=== PATIENT | male | born 1940 | race Caucasian/White ===

== ENCOUNTER 2017-12-14 10:08 | Observation (INO) | payer OTHER, BC ==
[2017-12-14 10:39] VITALS: BMI 24.5
--- NOTE | 2017-12-14 11:05 | PDOC ---
History of Present Illness - General Chief Complaint: Lethargy Stated Complaint: FEELING OFF Time Seen by Provider: 12/14/17 10:10 History Source: Patient Exam Limitations: No Limitations - History of Present Illness Initial Comments: 12/14/17 10:50 77 year old with past medical history of episode of dehydration 40 years ago and recent H.pylori diagnosis who presents with 6 months of weakness and some episodes of confusion now with 2 days of inability to sleep through the night 2/ 2 polyuria as patient has been drinking excessively as he is afraid that he might be dehydrated. He admits to exertional shortness of breath. The patient denies chest pain, headaches, changes in vision, abdominal pain, nausea, vomiting, diarrhea. The patient admits to constipation 4 days ago that has resolved for two days. The patient notes a history of losing vision while in stores but when he comes outside he regains vision. The daughter notes that Dr. Xiong had thought this to be due to anxiety. The family has been followed by Dr. Xiong and has been worked up by him. The patient was thought to have possible Parkinson symptoms 1-2 months ago and was evaluated by two neurologists with unremarkable head CT in August,. He was started on a trial of parkinson medications without relief of symptoms of weakness and lightheadedness. Past History - Past Medical History Allergies/Adverse Reactions: Allergies Allergy/AdvReac Type Severity Reaction Status Date / Time Penicillins Allergy Unknown Verified 12/14/17 10:10 Home Medications: Ambulatory Orders Amitriptyline HCl [Elavil -] 10 mg PO HS 12/14/17 Clarithromycin [Biaxin -] 500 mg PO BID 12/14/17 Metronidazole 500 mg PO TID 12/14/17 Omeprazole 20 mg PO BID 12/14/17 COPD: No GI Disorders: Yes Psychiatric Problems: Yes - Suicide/Smoking/Psychosocial Hx Smoking History: Never smoked Hx Alcohol Use: Yes (RARE) Drug/Substance Use Hx: No *Physical Exam - Vital Signs Last Vital Signs Temp Pulse Resp BP Pulse Ox 97.6 F 78 16 143/80 98 12/14/17 10:10 12/14/17 10:10 12/14/17 10:10 12/14/17 10:10 12/14/17 10:10 ED Treatment Course - LABORATORY CBC & Chemistry Diagram: 12/14/17 11:00 12/14/17 11:00 - RADIOLOGY Radiology Studies Ordered: Category Date Time Status CXRPORT [CHEST X-RAY PORTABLE*] [RAD] Stat Radiology 12/14/17 10:23 Ordered Medical Decision Making - Medical Decision Making 12/14/17 11:06 77 year old with past medical history of episode of dehydration 40 years ago and recent H.pylori diagnosis who presents with 6 months of weakness and some episodes of confusion now with 2 days of inability to sleep through the night 2/ 2 polyuria as patient has been drinking excessively as he is afraid that he might be dehydrated. The patient denies chest pain, shortness of breath, headaches, changes in vision, abdominal pain, nausea, vomiting, diarrhea. The patient admits to constipation 4 days ago that has resolved for two days. DDX including but not limited to: electrolye abnormality vs ACS vs PNA vs UTI vs anxiety W/U: - TX: - Scores: ED Course: Patient anxious appearing and remarks that he is scared. When asked what he was scared about he begins to get tearful. The patient's daughter steps in and notes that the patient is normally very active and has been feeling more weak and lightheaded which is why he scared. The patient does not speak. 12/14/17 11:28 CXR: without acute findings. 12/14/17 12:03 Labwork:unremarkable *DC/Admit/Observation/Transfer Diagnosis at time of Disposition: Atypical angina, Exertional dyspnea - Discharge Dispostion Disposition: HOME Condition at time of disposition: Stable Decision to Admit order: Yes - Referrals Referrals: Bowen Xiong MD [Primary Care Provider] - - Patient Instructions - Post Discharge Activity
[2017-12-14 11:14] LABS: BASO % 0.7 % (0-2.0); EOS % 1.1 % (0-4.5); HEMATOCRIT 49.6 % (35.4-49); HEMOGLOBIN 16.7 GM/dl (11.7-16.9); LYMPH % 15.4 % (8-40); MCHC 33.7 g/dl (32.0-35.9); MEAN CELL VOLUME 86.1 fl (80-96); MONO % 7.8 % (3.8-10.2); PLATELET COUNT 152 K/MM3 (134-434); RBC 5.76 M/mm3 (4.00-5.60); RDW 12.5 % (11.9-15.9); WHITE BLOOD COUNT 5.3 K/mm3 (4.0-10.8)
[2017-12-14 11:26] LABS: ALBUMIN 4.2 g/dl (3.5-5.0); ALK PHOS 61 U/L (32-92); ANION GAP 6 MMOL/L (8-16); BILIRUBIN,TOTAL 1.4 mg/dl (0.2-1.0); BLOOD UREA NITROGEN 17 mg/dl (7-18); CALCIUM 9.4 mg/dl (8.4-10.2); CHLORIDE 103 mmol/L (98-107); CO2 27 mmol/L (22-28); GLUCOSE,RANDOM 109 mg/dl (74-106); MAGNESIUM 2.1 mg/dL (1.8-2.4); SGOT/AST 29 U/L (10-42); SGPT/ALT 33 U/L (10-40); SODIUM 136 mmol/L (136-145); TOT PROT 6.6 g/dl (6.4-8.3)
[2017-12-14 11:35] LABS: URINE APPEARANCE Clear; URINE BILIRUBIN Negative (NEGATIVE); URINE COLOR Yellow; URINE GLUCOSE (UA) Negative (NEGATIVE); URINE KETONE Negative (NEGATIVE); URINE LEUK ESTERASE Negative (NEGATIVE); URINE NITRITE Negative (NEGATIVE); URINE PROTEIN Negative (NEGATIVE); URINE UROBILINOGEN 0.2 (0.2-1.0)
--- NOTE | 2017-12-14 12:06 | PDOC ---
Attending Attestation - Resident Resident Name: Guerda Pandya - ED Attending Attestation I have performed the following: I have examined & evaluated the patient, The case was reviewed & discussed with the resident, I agree w/resident's findings & plan, Exceptions are as noted - HPI HPI: 12/14/17 12:02 77 yo M ho htn, hld , here with c/o feeling " not well" pt describes decreased sleep for the last few weeks especially the last few days. also describes getting short of breath walking short distances, used to walk up and down a hill , now cant do it anymore. describes feeling fatigued, and lightheaded and sob with minimal exertion. denies cp. no dark stools. does have urinary frequency, denies dysuria. no f/c no other complaints. no cp. here wtih daughter who provides additional history states he has seen an nuerologist. dr. fontenot for this, and pcp dr. villalba, has recently started xanax to help him sleep. but no relief. - Physicial Exam PE: 12/14/17 12:04 awake alert lungs clear heart rrr no mrg abd soft nt nd. no pulsatile mass. ext wwp. nuero alert oriented strenth 5/5 all four ext. skin warm and dry. - Medical Decision Making 12/14/17 12:05 differential: anemia electrolyte abnormality, infection such as pna or uti. cardiac dysfunction atypical mi. plan labs ekg cxr . will consider admission for weakness, fagiute and exertional dyspena. cardiac workup and echo. labs unremarkable in ed. ekg with occasional pac, otherwise no ischemic changes. Heart Score/ECG Review #1 General ECG Interpretation: Sinus Rhythm, Normal Rate (65), Normal Intervals, No acute ischemic changes
--- NOTE | 2017-12-14 12:46 | HP ---
CHIEF COMPLAINT: dyspnea upon exertion PCP: Dr Xiong GI: Dr Feliz HISTORY OF PRESENT ILLNESS: patient is a 77 y/o male, was recently diagnosed with early stages of parkinson's disease as per his neurologist, Dr Broussard. Daughter at bedside, reports he was started on anti-parkinson's medication but discontinued the medication secondary to side effects. He was evaluated by GI, Dr Feliz, last month and was noted to be + for hyplori and was started on PPI, biaxin and flagyl with relief of nausea. Patient reports 2 days of dyspnea upon exertion with dizziness. Patient denies any syncopal episode. ER course was notable for: (1)ekg nsr with PAC's (2)troponin x 1 wnl Recent Travel: none PAST MEDICAL HISTORY: see hpi PAST SURGICAL HISTORY:none as per patient Social History: resides at home with Smoking:none Alcohol:none Drugs: none Family History: noncontributory Allergies Penicillins Allergy (Unknown, Verified 12/14/17 10:10) HOME MEDICATIONS: Home Medications Medication Instructions Recorded Amitriptyline HCl [Elavil -] 10 mg PO HS 12/14/17 Clarithromycin [Biaxin -] 500 mg PO BID 12/14/17 Metronidazole 500 mg PO TID 12/14/17 Omeprazole 20 mg PO BID 12/14/17 REVIEW OF SYSTEMS CONSTITUTIONAL: present: generalized weakness Absent: fever, chills, diaphoresis, malaise, loss of appetite, weight change HEENT: Absent: rhinorrhea, nasal congestion, throat pain, throat swelling, difficulty swallowing, mouth swelling, ear pain, eye pain, visual changes CARDIOVASCULAR: Absent: chest pain, syncope, palpitations, irregular heart rate, lightheadedness , peripheral edema RESPIRATORY: present: dyspnea with exertion Absent: cough, shortness of breath, orthopnea, wheezing, stridor, hemoptysis GASTROINTESTINAL: Absent: abdominal pain, abdominal distension, nausea, vomiting, diarrhea, constipation, melena, hematochezia GENITOURINARY: Absent: dysuria, frequency, urgency, hesitancy, hematuria, flank pain, genital pain MUSCULOSKELETAL: Absent: myalgia, arthralgia, joint swelling, back pain, neck pain SKIN: Absent: rash, itching, pallor HEMATOLOGIC/IMMUNOLOGIC: Absent: easy bleeding, easy bruising, lymphadenopathy, frequent infections ENDOCRINE: Absent: unexplained weight gain, unexplained weight loss, heat intolerance, cold intolerance NEUROLOGIC: Absent: headache, focal weakness or paresthesias, dizziness, unsteady gait, seizure, mental status changes, bladder or bowel incontinence PSYCHIATRIC: Absent: anxiety, depression, suicidal or homicidal ideation, hallucinations. PHYSICAL EXAMINATION Vital Signs - 24 hr 12/14/17 10:10 Temperature 97.6 F Pulse Rate 78 Respiratory 16 Rate Blood Pressure 143/80 O2 Sat by Pulse 98 Oximetry (%) GENERAL: Awake, alert, and fully oriented, in no acute distress. HEAD: Normal with no signs of trauma. EYES: Pupils equal, round and reactive to light, extraocular movements intact, sclera anicteric, conjunctiva clear. No lid lag. EARS, NOSE, THROAT: Ears normal, nares patent, oropharynx clear without exudates. Moist mucous membranes. NECK: Normal range of motion, supple without lymphadenopathy, JVD, or masses. LUNGS: Breath sounds equal, clear to auscultation bilaterally. No wheezes, and no crackles. No accessory muscle use. HEART: irregular, Regular rate and rhythm, normal S1 and S2, without murmur, rub or gallop. ABDOMEN: Soft, nontender, not distended, normoactive bowel sounds, no guarding, no rebound, no masses. No hepatomegaly or splenomegaly. MUSCULOSKELETAL: Normal range of motion at all joints. No bony deformities or tenderness. No CVA tenderness. UPPER EXTREMITIES: 2+ pulses, warm, well-perfused. No cyanosis. No clubbing. No peripheral edema. LOWER EXTREMITIES: 2+ pulses, warm, well-perfused. No calf tenderness. No peripheral edema. NEUROLOGICAL: Cranial nerves II-XII intact. Normal speech. Normal gait. PSYCHIATRIC: Cooperative. Good eye contact. Appropriate mood and affect. SKIN: Warm, dry, normal turgor, no rashes or lesions noted, normal capillary refill. Laboratory Results - last 24 hr 12/14/17 12/14/17 12/14/17 11:00 11:00 11:00 WBC 5.3 RBC 5.76 H Hgb 16.7 Hct 49.6 H MCV 86.1 MCH 29.0 MCHC 33.7 RDW 12.5 Plt Count 152 MPV 10.0 Absolute Neuts (auto) 4.0 Neutrophils % 75.0 D Lymphocytes % 15.4 D Monocytes % 7.8 Eosinophils % 1.1 Basophils % 0.7 Sodium 136 Potassium 4.0 Chloride 103 Carbon Dioxide 27 Anion Gap 6 L BUN 17 Creatinine 1.0 Creat Clearance w eGFR > 60 Random Glucose 109 H Calcium 9.4 Magnesium 2.1 Total Bilirubin 1.4 H AST 29 ALT 33 D Alkaline Phosphatase 61 Troponin I < 0.03 Total Protein 6.6 Albumin 4.2 TSH 0.63 D Urine Color Urine Appearance Urine pH Ur Specific [place] Urine Protein Urine Glucose (UA) Urine Ketones Urine Blood Urine Nitrite Urine Bilirubin Urine Urobilinogen Ur Leukocyte Esterase 12/14/17 11:20 WBC RBC Hgb Hct MCV MCH MCHC RDW Plt Count MPV Absolute Neuts (auto) Neutrophils % Lymphocytes % Monocytes % Eosinophils % Basophils % Sodium Potassium Chloride Carbon Dioxide Anion Gap BUN Creatinine Creat Clearance w eGFR Random Glucose Calcium Magnesium Total Bilirubin AST ALT Alkaline Phosphatase Troponin I Total Protein Albumin TSH Urine Color Yellow Urine Appearance Clear Urine pH 7.0 Ur Specific [place] 1.015 Urine Protein Negative Urine Glucose (UA) Negative Urine Ketones Negative Urine Blood Negative Urine Nitrite Negative Urine Bilirubin Negative Urine Urobilinogen 0.2 Ur Leukocyte Esterase Negative ASSESSMENT/PLAN: 1) cardiovascular dyspnea upon exertion - troponin x 1 wnl, pending 2nd and 3rd, echo ordered - patient also reports feeling tired in the morning, advise sleep study as outpatient. - continous cardiac monitoring - appreciate cardiology input 2) GI hpylori - continue home medication regimen, ppi, biaxin, flagyl - pt will require outpatient follow up for endo with gi 3) gu polyuria - ua negative for leukocytes, psa (06/29) 2.2 - will order ultrasound of kidney/bladder f/e/n - regular diet - replete electrolytes prn ppx - oob - less than 2mn will defer AC dispo: pt requires obsv telemetry admission Visit type - Emergency Visit Emergency Visit: Yes ED Registration Date: 12/14/17 Care time: The patient presented to the Emergency Department on the above date and was hospitalized for further evaluation of their emergent condition. - New Patient This patient is new to me today: Yes Date on this admission: 12/14/17 - Critical Care Critical Care patient: No
[2017-12-14 12:52] LABS: COCAINE, UR NEGATIVE ng/ml (CUTOFF=300); METHADONE, UR NEGATIVE ng/ml (CUTOFF=300); OPIATES, URI NEGATIVE ng/ml (CUTOFF=300); PHENCYCLIDINE,URINE NEGATIVE ng/ml (CUTOFF=25); URINE AMPHETAMINES NEGATIVE ng/ml (CUTOFF=500); URINE BARBITURATES NEGATIVE ng/ml (CUTOFF=200); URINE BENZODIAZEPINES NEGATIVE ng/ml (CUTOFF=200)
--- NOTE | 2017-12-14 14:16 | CON.CARD ---
Consult Consult Specialty:: Cardiology Referred by:: Saad Reason for Consultation:: dyspnea on exertion - History of Present Illness Chief Complaint: dyspnea on exertion History of Present Illness: 77M h/o HTN, HLD, H pylori p/w dyspnea on exertion for two days. Has fatigue, dyspnea with minimal exertion. no chest pain, palps, dizzy, lightheadedness. In the ER trop neg x 1, CXR no acute process. Also complaining of frequent urination, lightheadedness over months. - Past Medical History Cardio/Vascular: Yes: HTN - Alcohol/Substance Use Hx Alcohol Use: Yes (RARE) - Smoking History Smoking history: Never smoked Home Medications - Allergies Allergies/Adverse Reactions: Allergies Allergy/AdvReac Type Severity Reaction Status Date / Time Penicillins Allergy Unknown Verified 12/14/17 10:10 - Home Medications Home Medications: Ambulatory Orders Amitriptyline HCl [Elavil -] 10 mg PO HS 12/14/17 Clarithromycin [Biaxin -] 500 mg PO BID 12/14/17 Metronidazole 500 mg PO TID 12/14/17 Omeprazole 20 mg PO BID 12/14/17 Family Disease History - Family Disease History Family History: Unremarkable Review of Systems - Review of Systems Constitutional: reports: Lethargy Eyes: reports: No Symptoms HENT: reports: No Symptoms Neck: reports: No Symptoms Cardiovascular: reports: Shortness of Breath Respiratory: reports: No Symptoms Gastrointestinal: reports: No Symptoms Genitourinary: reports: Frequency Musculoskeletal: reports: No Symptoms Neurological: reports: Dizziness, Weakness Endocrine: reports: No Symptoms Hematology/Lymphatic: reports: No Symptoms Psychiatric: reports: No Symptoms Vital Signs: Vital Signs Temperature 97.8 F 12/14/17 13:40 Pulse Rate 68 12/14/17 13:40 Respiratory Rate 16 12/14/17 13:40 Blood Pressure 144/68 12/14/17 13:40 O2 Sat by Pulse Oximetry (%) 97 12/14/17 13:40 Constitutional: Yes: Well Nourished, No Distress, Calm Eyes: Yes: Conjunctiva Clear, EOM Intact HENT: Yes: Atraumatic, Normocephalic Neck: Yes: Supple, Trachea Midline Respiratory: Yes: Regular, CTA Bilaterally Gastrointestinal: Yes: Normal Bowel Sounds, Soft Cardiovascular: Yes: Regular Rate and Rhythm JVD: No Carotid Bruit: No PMI: Non-Displaced Heart Sounds: Yes: S1, S2 Murmur: Yes: Systolic Murmur (II/ systolic murmur) Musculoskeletal: No: Back Pain Extremities: No: Cyanosis Edema: No Peripheral Pulses WNL: Yes Peripheral Pulses: 2+ Left Doralis Pedis, 2+ Right Dorsalis Pedis Integumentary: No: Jaundice Neurological: Yes: Alert, Oriented Psychiatric: Yes: Alert, Oriented - Other Data Labs, Other Data: CBC, BMP 12/14/17 11:00 12/14/17 11:00 Troponin, BNP 12/14/17 11:00 Troponin I < 0.03 Troponin, BNP 12/14/17 11:00 Troponin I < 0.03 Assessment/Plan EKG sinus with PACs CXR: no acute process 77M h/o HTN, HLD, Parkinson's dz, H pylori p/w dyspnea on exertion Dyspnea on exertion - trop neg x 1 - euvolemic on exam, CXR no signs of congestion - BNP pending - echo pending, if benign no further inpatient cardiac workup HTN - stable, not on meds ?Parkinson's dz - undergoing neuro workup as outpatient - manage per primary
[2017-12-14 16:00] LABS: N-TERMINAL BNP 67.7 pg/ml (5-450)
--- NOTE | 2017-12-14 16:33 | ECHO ---
Name: DULCE JORDAN Exam:Adult Echocardiogram Study Date: 12/14/2017 03:54 PM Age: 77 yrs Reason For Study: pacheco Height: 70 in Weight: 172 lb BSA: 2.0 m2 MMode/2D Measurements & Calculations IVSd: 0.99 cm LA dimension: 3.8 cm LVIDd: 4.1 cm LVIDs: 2.9 cm LVPWd: 1.3 cm LVPWs: 1.4 cm EDV(Teich): 73.3 ml ESV(Teich): 31.7 ml Doppler Measurements & Calculations MV E max cristobal: 56.7 cm/sec MV A max cristobal: 98.4 cm/sec MV dec slope: 296.6 cm/sec2 MV E/A: 0.58 Ao V2 max: 139.1 cm/sec LV V1 max P.2 mmHg Ao max P.7 mmHg LV V1 max: 142.8 cm/sec TR max cristobal: 221.4 cm/sec PA V2 max: 85.1 cm/sec TR max P.6 mmHg PA max P.9 mmHg Left Ventricle Left ventricular systolic function is normal. Ejection Fraction = 50-55%. Right Ventricle The right ventricle is normal in size and function. Atria The left atrium is borderline dilated. Mitral Valve Suggestion of mild posterior leaflet mitral valve prolapse in some views. There is mild mitral annula r calcification. There is no mitral valve stenosis. There is mild mitral regurgitation. Tricuspid Valve The tricuspid valve is normal in structure and function. There is mild tricuspid regurgitation. Right ventricular systolic pressure is normal. Aortic Valve The aortic valve opens well. No hemodynamically significant valvular aortic stenosis. Mild aortic regurgitation. Pulmonic Valve The pulmonic valve is not well seen, but is grossly normal. There is no pulmonic valvular stenosis. Great Vessels The aortic root is normal size. Pericardium/Pleura There is no pericardial effusion. Interpretation Summary Left ventricular systolic function is normal. Ejection Fraction = 50-55%. The right ventricle is normal in size and function. Suggestion of mild posterior leaflet mitral valve prolapse in some views. There is mild mitral annular calcification. There is mild mitral regurgitation. There is mild tricuspid regurgitation. Right ventricular systolic pressure is normal. Mild aortic regurgitation. There is no pericardial effusion. MD Del [place] *Eliot 12/14/2017 04:32 PM
[2017-12-14] MEDS: metroNIDAZOLE 250 MG TABLET PO SCH ×2 (17:46→21:01)
[2017-12-14] MEDS: CLARITHROMYCIN 500 MG TABLET (UD) PO SCH (21:02)
[2017-12-14] MEDS ORDERED: AMITRIPTYLINE HCL 10 MG TABLET (FP) PO SCH (22:00)
[2017-12-15] MEDS: metroNIDAZOLE 250 MG TABLET PO SCH ×2 (06:16→13:33)
[2017-12-15] MEDS: PATIENT'S OWN MEDICATION (NON-FORMULARY) (Omeprazole 20 MG) PO SCH ×2 (06:16→10:34)
[2017-12-15 07:13] VITALS: TEMP 97.5
[2017-12-15 08:34] LABS: BASO % 0.5 % (0-2.0); EOS % 1.4 % (0-4.5); HEMATOCRIT 47.7 % (35.4-49); HEMOGLOBIN 16.1 GM/dl (11.7-16.9); LYMPH % 23.5 % (8-40); MCH 29.1 pg (25.7-33.7); MCHC 33.8 g/dl (32.0-35.9); MEAN CELL VOLUME 86.2 fl (80-96); MEAN PLT VOLUME 9.7 fl (7.5-11.1); MONO % 9.1 % (3.8-10.2); NEUT % 65.5 % (42.8-82.8); PLATELET COUNT 135 K/MM3 (134-434); RBC 5.54 M/mm3 (4.00-5.60); RDW 12.2 % (11.9-15.9)
[2017-12-15 08:40] LABS: ALK PHOS 58 U/L (32-92); ANION GAP 7 MMOL/L (8-16); BILIRUBIN,TOTAL 1.8 mg/dl (0.2-1.0); BLOOD UREA NITROGEN 17 mg/dl (7-18); CALCIUM 9.5 mg/dl (8.4-10.2); CHLORIDE 102 mmol/L (98-107); CO2 28 mmol/L (22-28); GLUCOSE,RANDOM 123 mg/dl (74-106); MAGNESIUM 1.9 mg/dL (1.8-2.4); PHOSPHOROUS 3.1 mg/dl (2.5-4.6); POTASSIUM 3.9 mmol/L (3.5-5.1); SGOT/AST 47 U/L (10-42); SGPT/ALT 51 U/L (10-40); SODIUM 137 mmol/L (136-145); TOT PROT 6.4 g/dl (6.4-8.3)
[2017-12-15 09:02] LABS: INR 1.04 (0.82-1.09); PROTHROMBIN TIME (PATIENT) 11.6 SEC (10.2-13.0)
--- NOTE | 2017-12-15 10:16 | PN ---
Progress Note (short form) - Note Progress Note: s: feels well today, no episodes of lightheadedness, dyspnea on exertion. no cp , palps, edema. wnats to go home Current Medications Amitriptyline HCl (Elavil -) 10 mg PO HS [facility] Clarithromycin (Biaxin -) 500 mg PO BID [facility] Last Admin: 12/14/17 21:02 Dose: 500 mg Metronidazole (Flagyl -) 500 mg PO TID [facility] Last Admin: 12/15/17 06:16 Dose: 500 mg Non-Formulary Medication (Omeprazole) 20 mg PO BID [facility] Last Admin: 12/15/17 06:16 Dose: Not Given Vital Signs: Current Medications Amitriptyline HCl (Elavil -) 10 mg PO [facility] Clarithromycin (Biaxin -) 500 mg PO BID [facility] Last Admin: 12/14/17 21:02 Dose: 500 mg Metronidazole (Flagyl -) 500 mg PO TID [facility] Last Admin: 12/15/17 06:16 Dose: 500 mg Non-Formulary Medication (Omeprazole) 20 mg PO BID [facility] Last Admin: 12/15/17 06:16 Dose: Not Given Constitutional: Yes: Well Nourished, No Distress, Calm Eyes: Yes: Conjunctiva Clear, EOM Intact HENT: Yes: Atraumatic, Normocephalic Neck: Yes: Supple, Trachea Midline Respiratory: Yes: Regular, CTA Bilaterally Gastrointestinal: Yes: Normal Bowel Sounds, Soft Cardiovascular: Yes: Regular Rate and Rhythm JVD: No Carotid Bruit: No PMI: Non-Displaced Heart Sounds: Yes: S1, S2 Murmur: Yes: Systolic Murmur (II/ systolic murmur) Musculoskeletal: No: Back Pain Extremities: No: Cyanosis Edema: No Peripheral Pulses WNL: Yes Peripheral Pulses: 2+ Left Doralis Pedis, 2+ Right Dorsalis Pedis Integumentary: No: Jaundice Neurological: Yes: Alert, Oriented Psychiatric: Yes: Alert, Oriented Assessment/Plan EKG sinus with PACs CXR: no acute process tele: sinus with episodes of sinus bradycardia to 30s when sleeping echo 12/2017 EF 50-55%, nl RV, mild post MVP, mild MR, mild TR, mild AR, nl RVSP 77M h/o HTN, HLD, Parkinson's dz, H pylori p/w dyspnea on exertion bradycardia - episodes to 30s noted when patient sleeping - may be consistent with sleep apnea, recommend outpatient sleep study - no correlation with symptoms here, happens in sleep - would recommend outpatient follow up with holter/event monitor for further evaluation, no indication for ppm at this point - avoid perry blocking agents Dyspnea on exertion - trop neg x 2 - euvolemic on exam, CXR no signs of congestion - BNP nl - echo unremarkable HTN - stable, not on meds ?Parkinson's dz - undergoing neuro workup as outpatient - manage per primary
[2017-12-15 10:19] VITALS: BP 138/60; PULSE 68
[2017-12-15] MEDS ORDERED: PT OWN MED DRAWER 7, Y5N ONE ×3 (10:33→10:39)
[2017-12-15] MEDS: CLARITHROMYCIN 500 MG TABLET (UD) PO SCH (10:35)
--- NOTE | 2017-12-15 12:22 | EKG ---
Test Reason : Blood Pressure : / mmHG Vent. Rate : 065 BPM Atrial Rate : 065 BPM P-R Int : 194 ms QRS Dur : 090 ms QT Int : 406 ms P-R-T Axes : 054 001 038 degrees QTc Int : 422 ms SINUS RHYTHM WITH PREMATURE ATRIAL COMPLEXES OTHERWISE NORMAL ECG NO PREVIOUS ECGS AVAILABLE Confirmed by SACHIN CARRILLO MD ([id number]) on 12/15/2017 12:22:40 PM Referred By: FOUZIA Confirmed By:SACHIN CARRILLO MD
== END 2017-12-15 13:50 | disposition home or self-care (01) ==
LOC: FER 10:08 → FM/S 12:44
PROVIDERS: ADMIT Internal Medicine; ATTEND Nurse Practitioner Acute Care
DX: R06.00 Dyspnea, unspecified (principal); R00.1 Bradycardia, unspecified; I10 Essential (primary) hypertension; I20.8 Other forms of angina pectoris
CPT/HCPCS: 36415; 71045-TC-FY; 76775-TC; 76856-TC; 80053; 80307; 81003; 82550; 82607; 83605; 83735; 83880; 84100; 84443; 84484; 85025; 85610; 87086; 93005; 93306-TC; 97116-GP; 97161-GP; 99285-25; G0378

== ENCOUNTER 2017-12-17 03:56 | Emergency (ER) | payer OTHER, BC ==
[2017-12-17 04:04] VITALS: BP 152/83; PULSE 67; TEMP 97.3; BMI 25.8
--- NOTE | 2017-12-17 04:16 | PDOC ---
History of Present Illness - General Chief Complaint: Urinary Problem Stated Complaint: URINE INFECTION, FEELS DEHYDRATED Time Seen by Provider: 12/17/17 04:05 - History of Present Illness Initial Comments: This 77-year-old man who was admitted here on 12/14 and discharged the following day. He had presented to the ER with dyspnea on exertion; CHF was ruled out as was acute CT during his overnight stay. When he presented in the ER, he described needing to drink large quantities of water because he is afraid of being dehydrated. Patient presents tonight with similar complaints: States that he is drinking large amounts of water because of "dry feeling" in his throat and subsequently urinating frequently. He denies dysuria/hematuria/ urinary urgency. Of note, the patient has been treated for a few weeks by Dr. Feliz for H. pylori with metronidazole/clarithromycin and omeprazole. Patient states that his dry feeling in his throat has been worsening since she has been taking these medications. He denies shortness of breath/chest pain/abdominal pain. Patient is also complaining of not being able to sleep for several days because of his fluid intake and subsequent urination. During his admission last week, sleep study to workup possible sleep disorder was planned for the future. According to patient's , he has follow-up appointments in the next day or [address] Xiong and [address] Feliz The patient does not any other significant medical history. According to son, he was diagnosed as having Parkinson's disease but prescribed medication had significant side effects and medication was stopped. It is unclear whether he has any neurology follow-up Past History - Past Medical History Allergies/Adverse Reactions: Allergies Allergy/AdvReac Type Severity Reaction Status Date / Time Penicillins Allergy Unknown Verified 12/17/17 03:58 Home Medications: Ambulatory Orders Clarithromycin [Biaxin -] 500 mg PO BID 12/14/17 Metronidazole 500 mg PO TID 12/14/17 Omeprazole 20 mg PO BID 12/14/17 Clotrimazole [Mycelex -] 10 mg PO 5XD #35 philippe 12/17/17 COPD: No GI Disorders: Yes (H. Pylori) Disorders: Yes (URINE INFECTION, STARTED MEDICATION SUNDAY) Psychiatric Problems: Yes - Suicide/Smoking/Psychosocial Hx Smoking History: Never smoked Have you smoked in the past 12 months: No Information on smoking cessation initiated: No Hx Alcohol Use: No Drug/Substance Use Hx: No Substance Use Type: None Hx Substance Use Treatment: No Review of Systems - Review of Systems Able to Perform ROS?: Yes Comments:: 12 point review of systems is negative except for what is noted in the history of present illness *Physical Exam - Vital Signs Last Vital Signs Temp Pulse Resp BP Pulse Ox 97.3 F L 67 16 152/83 98 12/17/17 04:00 12/17/17 04:00 12/17/17 04:00 12/17/17 04:00 12/17/17 04:00 - Physical Exam Comments: GENERAL: Elderly man, appearing somewhat anxious but in no acute distress HEAD: Normal with no signs of trauma. EYES: PERRLA, EOMI, sclera anicteric, conjunctiva clear. ENT: Ears normal, nares patent, oropharynx erythematous with white patches. Dry mucous membranes. NECK: Normal range of motion, supple without lymphadenopathy, JVD, or masses. LUNGS: Breath sounds equal, clear to auscultation bilaterally. No wheezes, and no crackles. HEART:Regular rate and rhythm, normal S1 and S2 without murmur, rub or gallop. ABDOMEN:.normal bowel sounds No guarding,tenderness or rebound.No masses No distention. EXTREMITIES: Normal range of motion, no edema. No clubbing or cyanosis. No erythema, or tenderness. NEUROLOGICAL: Cranial nerves II through XII grossly intact. Normal speech. No focal neurological deficits. MUSCULOSKELETAL: Back non-tender to palpation, no CVA tenderness SKIN: Warm, Dry, normal turgor, no rashes or lesions noted. Progress Note - Progress Note Progress Note: This 77-year-old man presents with his and son with complaints of not being able to sleep because of frequent urination. He he also admits to drinking large amounts of water so that he will not be dehydrated; patient states that he has a dry feeling in his throat. This may or may not have started after starting antibiotics for his H. pylori infection. Exam as noted; only significant finding is erythema and small whitish plaques on the hard and soft palate. Since patient has been on antibiotics for few weeks, is possible that he has oral candidiasis. Otherwise, exam reveals no evidence of urinary retention/fluid overload or dehydration. Patient does however seem quite anxious. Since the oral candidiasis may be contributing to the "dry feeling" that the patient has an his mouth, he is been advised to stop the 2 antibiotics for H. pylori and to start clotrimoxazole lozenges (10 mg 5 times a day). They MUST follow-up with Dr. Feliz in the next 48 hours in order to address the issue of H. pylori treatment. The remainder of the patient's complaints are long-standing; his follow-up appointment with Dr. Xiong is reportedly (by ) later today. According to son, the patient's daughter has coordinated most of his medical care. She will make an appointment with Dr. Xiong (if it is not already scheduled) within the next 1-2 days. Patient should return to the emergency room if he has any shortness of breath/ chest pain/fever or chills/dysuria. *DC/Admit/Observation/Transfer Diagnosis at time of Disposition: Oral candidiasis - Discharge Dispostion Disposition: HOME Condition at time of disposition: Stable - Prescriptions Prescriptions: Clotrimazole [Mycelex -] 10 mg PO 5XD #35 philippe - Referrals Referrals: Bowen Xiong MD [Primary Care Provider] - - Patient Instructions Printed Discharge Instructions: Thrush-Adult Additional Instructions: Stop metronidazole and clarithromycin Clotrimazole lozenges 5 times a day Continue omeprazole Follow-up with Dr. Xiong within the next 48 hours Follow-up with Dr. Feliz as scheduled this week Have sleep study performed as planned (to be scheduled by your doctor) - Post Discharge Activity
== END 2017-12-17 05:06 | disposition home or self-care (01) ==
LOC: FER 03:56
DX: B37.0 Candidal stomatitis (principal); F99 Mental disorder, not otherwise specified; N39.9 Disorder of urinary system, unspecified
CPT/HCPCS: 99281-25